=== PATIENT | female | born 1980 | race Two or more races ===

== ENCOUNTER 2020-04-08 06:00 | Day surgery (SDC) | payer OTHER ==
[~2020-04-08 06:00] MED LIST: ASA-EC81 MG PO; COZAAR100 MG PO; Coreg PO; HYZAAR 100-251 UDTAB PO; IMDUR30 MG PO; LIPITOR40 MG PO
== END 2020-04-08 16:20 | disposition home or self-care (01) ==
LOC: CIR.AMB 06:00
PROVIDERS: ATTEND Obstetrics & Gynecology
DX: N80.0 Endometriosis of uterus (principal); Z20.828 Contact with and (suspected) exposure to other viral communicable diseases

== ENCOUNTER 2020-05-22 13:26 | Outpatient (CLI) | payer OTHER | END 2020-05-22 13:29 | disposition home or self-care (01) | LOC: RAD 13:26 | PROVIDERS: ATTEND Orthopaedic Surgery | DX: M25.551 Pain in right hip (principal); M25.552 Pain in left hip ==

== ENCOUNTER 2022-06-24 10:41 | Inpatient (IN) | payer OTHER ==
[~2022-06-24] VITALS: Ht 157.5 cm; Wt 54.4 kg
[~2022-06-24 10:41] MED LIST changes: +CELLCEPT500 MG; +ECOTRIN81 MG; +LOSARTAN-HCTZ1 EAC2; +RAYOS5 MG
== END 2022-06-29 15:47 | disposition home or self-care (01) | DRG 812 ==
LOC: ER 10:41 → ICU-2 16:19 → SEC-K 16:19 → MEDJ 06-25 19:12
PROVIDERS: ADMIT Internal Medicine; ATTEND Internal Medicine
PROC: 30233N1 Transfusion of Nonautologous Red Blood Cells into Peripheral Vein, Percutaneous Approach (ICD-10-PCS; principal; 2022-06-25)
PROC: B54NZZZ Ultrasonography of Left Upper Extremity Veins (ICD-10-PCS; 2022-06-26)
DX: D64.9 Anemia, unspecified (principal); N17.8 Other acute kidney failure; I12.0 Hypertensive chronic kidney disease with stage 5 chronic kidney disease or end stage renal disease; E87.20 Acidosis, unspecified; N18.4 Chronic kidney disease, stage 4 (severe); M32.14 Glomerular disease in systemic lupus erythematosus; H54.61 Unqualified visual loss, right eye, normal vision left eye; D53.8 Other specified nutritional anemias; D63.1 Anemia in chronic kidney disease; E21.2 Other hyperparathyroidism; Z20.822 Contact with and (suspected) exposure to COVID-19

== ENCOUNTER 2022-08-16 08:26 | Inpatient (IN) | payer OTHER ==
[~2022-08-16] VITALS: Ht 152.4 cm; Wt 106.6 kg
[2022-08-25] MEDS ORDERED: BENLYSTA200 MG/1 M (16:23)
[2022-08-25] MEDS ORDERED: CALCITRIOL0.25 MCG (16:24)
[2022-08-25] MEDS ORDERED: DORZOLAMIDE HCL10 ML (16:24)
[2022-08-25] MEDS ORDERED: LATANOPROST2.5 ML (16:24)
[2022-08-25] MEDS ORDERED: REFRESH TEARS15 ML (16:24)
[2022-08-25] MEDS ORDERED: PHOSLO667 M1 (16:24)
[2022-08-25] MEDS ORDERED: BRIMONIDINE-TIMO5 ML (16:24)
== END 2022-08-31 15:10 | disposition expired | DRG 682 ==
LOC: ER 08:26 → ICU-2 19:32 → ICU 08-19 18:57
PROVIDERS: ADMIT Internal Medicine; ATTEND Internal Medicine
PROC: 4A12X4Z Monitoring of Cardiac Electrical Activity, External Approach (ICD-10-PCS; 2022-08-16)
PROC: BW24ZZZ Computerized Tomography (CT Scan) of Chest and Abdomen (ICD-10-PCS; 2022-08-17)
PROC: 05HM33Z Insertion of Infusion Device into Right Internal Jugular Vein, Percutaneous Approach (ICD-10-PCS; 2022-08-18)
PROC: B543ZZA Ultrasonography of Right Jugular Veins, Guidance (ICD-10-PCS; 2022-08-18)
PROC: 3E0F7GC Introduction of Other Therapeutic Substance into Respiratory Tract, Via Natural or Artificial Opening (ICD-10-PCS; 2022-08-18)
PROC: 0DH67UZ Insertion of Feeding Device into Stomach, Via Natural or Artificial Opening (ICD-10-PCS; 2022-08-18)
PROC: 3E0G76Z Introduction of Nutritional Substance into Upper GI, Via Natural or Artificial Opening (ICD-10-PCS; 2022-08-18)
PROC: 30233N1 Transfusion of Nonautologous Red Blood Cells into Peripheral Vein, Percutaneous Approach (ICD-10-PCS; 2022-08-19)
PROC: 5A1D70Z Performance of Urinary Filtration, Intermittent, Less than 6 Hours Per Day (ICD-10-PCS; 2022-08-19)
PROC: 02HV33Z Insertion of Infusion Device into Superior Vena Cava, Percutaneous Approach (ICD-10-PCS; 2022-08-20)
PROC: 5A1D70Z Performance of Urinary Filtration, Intermittent, Less than 6 Hours Per Day (ICD-10-PCS; 2022-08-20)
PROC: 3E03305 Introduction of Other Antineoplastic into Peripheral Vein, Percutaneous Approach (ICD-10-PCS; 2022-08-20)
PROC: 5A1D70Z Performance of Urinary Filtration, Intermittent, Less than 6 Hours Per Day (ICD-10-PCS; 2022-08-21)
PROC: 30233R1 Transfusion of Nonautologous Platelets into Peripheral Vein, Percutaneous Approach (ICD-10-PCS; 2022-08-21)
PROC: 3E03305 Introduction of Other Antineoplastic into Peripheral Vein, Percutaneous Approach (ICD-10-PCS; 2022-08-21)
PROC: 5A1D70Z Performance of Urinary Filtration, Intermittent, Less than 6 Hours Per Day (ICD-10-PCS; 2022-08-22)
PROC: 3E03305 Introduction of Other Antineoplastic into Peripheral Vein, Percutaneous Approach (ICD-10-PCS; 2022-08-22)
PROC: 3E03305 Introduction of Other Antineoplastic into Peripheral Vein, Percutaneous Approach (ICD-10-PCS; 2022-08-23)
PROC: B246ZZZ Ultrasonography of Right and Left Heart (ICD-10-PCS; 2022-08-24)
PROC: 5A1D70Z Performance of Urinary Filtration, Intermittent, Less than 6 Hours Per Day (ICD-10-PCS; 2022-08-24)
PROC: 0W993ZZ Drainage of Right Pleural Cavity, Percutaneous Approach (ICD-10-PCS; 2022-08-25)
PROC: 5A1D70Z Performance of Urinary Filtration, Intermittent, Less than 6 Hours Per Day (ICD-10-PCS; 2022-08-26)
PROC: 5A1955Z Respiratory Ventilation, Greater than 96 Consecutive Hours (ICD-10-PCS; 2022-08-26)
PROC: 0BH17EZ Insertion of Endotracheal Airway into Trachea, Via Natural or Artificial Opening (ICD-10-PCS; 2022-08-26)
PROC: 0BDK8ZX Extraction of Right Lung, Via Natural or Artificial Opening Endoscopic, Diagnostic (ICD-10-PCS; principal; 2022-08-27)
PROC: 5A1D70Z Performance of Urinary Filtration, Intermittent, Less than 6 Hours Per Day (ICD-10-PCS; 2022-08-28)
PROC: 8E0ZXY6 Isolation (ICD-10-PCS; 2022-08-29)
PROC: BU4CZZZ Ultrasonography of Uterus and Ovaries (ICD-10-PCS; 2022-08-30)
PROC: 5A1D70Z Performance of Urinary Filtration, Intermittent, Less than 6 Hours Per Day (ICD-10-PCS; 2022-08-31)
DX: N17.8 Other acute kidney failure (principal); J96.02 Acute respiratory failure with hypercapnia; I12.0 Hypertensive chronic kidney disease with stage 5 chronic kidney disease or end stage renal disease; D61.818 Other pancytopenia; E87.21 Acute metabolic acidosis; J90 Pleural effusion, not elsewhere classified; D62 Acute posthemorrhagic anemia; N39.0 Urinary tract infection, site not specified; E87.1 Hypo-osmolality and hyponatremia; N18.6 End stage renal disease; D63.1 Anemia in chronic kidney disease; D69.49 Other primary thrombocytopenia; E87.6 Hypokalemia; E88.09 Other disorders of plasma-protein metabolism, not elsewhere classified; N93.8 Other specified abnormal uterine and vaginal bleeding; D70.8 Other neutropenia; M32.14 Glomerular disease in systemic lupus erythematosus; D63.8 Anemia in other chronic diseases classified elsewhere; B96.20 Unspecified Escherichia coli [E. coli] as the cause of diseases classified elsewhere; Z99.2 Dependence on renal dialysis; Z79.630 Long term (current) use of alkylating agent; Z66 Do not resuscitate